=== PATIENT | female | born 1945 | race Caucasian/White ===

== ENCOUNTER 2021-01-20 22:22 | Emergency (ER) | payer MEDICARE, OTHER ==
[~2021-01-20] VITALS: Ht 144.8 cm; Wt 66.2 kg
[2021-01-20] MEDS ORDERED: LISINOPRIL10 MG PO (22:59)
[2021-01-20] MEDS ORDERED: CARBAMAZEPINE100 MG PO (22:59)
[2021-01-20] MEDS ORDERED: LEVOTHYROXINE100 MCG PO (23:02)
[2021-01-20] MEDS ORDERED: ATORVASTATIN CA20 MG PO (23:03)
[2021-01-20] MEDS ORDERED: DONEPEZIL HCL5 MG PO (23:03)
--- NOTE | 2021-01-22 12:46 | EKG ---
[facility] [address] [facility] [place], [place] [address] Signed Normal sinus rhythm Normal ECG No previous ECGs available Confirmed by RACHID WARREN DO ([id number]) on 01/22/2021 12:46:13 PM Electronically Signed By: RACHID WARREN DO 01/22/21 1246 PATIENT NAME: ANNE-MARIE SON CHANG Electrocardiogram DATE OF : 43 PHYSICIAN: RACHID WARREN DO REPORT #: [id number] REPORT IS CONFIDENTIAL AND NOT TO BE RELEASED WITHOUT AUTHORIZATION
== END 2021-01-21 03:07 | disposition home or self-care (01) ==
LOC: ED 22:22
PROC: 0T9B70Z Drainage of Bladder with Drainage Device, Via Natural or Artificial Opening (ICD-10-PCS; principal; 2021-01-20)
DX: R55 Syncope and collapse (principal); I10 Essential (primary) hypertension; E03.9 Hypothyroidism, unspecified; Z20.822 Contact with and (suspected) exposure to COVID-19; D72.829 Elevated white blood cell count, unspecified; Z79.899 Other long term (current) drug therapy
CPT/HCPCS: 51701; 70450; 71045; 74177; 80053; 81001; 84484; 85007; 85025; 93005; 93010; 99284-25; C9803; J7040; Q9967; U0003

== ENCOUNTER 2021-01-30 05:43 | Emergency (ER) | payer MEDICARE, OTHER ==
[~2021-01-30] VITALS: Ht 144.8 cm; Wt 66.2 kg
[~2021-01-30 05:43] MED LIST: ATORVASTATIN CA20 MG PO; CARBAMAZEPINE100 MG PO; DONEPEZIL HCL5 MG PO; LEVOTHYROXINE100 MCG PO; LISINOPRIL10 MG PO
--- OUTSIDE RECORDS SUMMARY | 2021-01-30 05:52 | XMS ---
PreManage Notification: ANNE-MARIE SON [employer] Events No recent Security Events currently on file CRITERIA MET - [facility] - 2 Visits in 30 Days CARE PROVIDERS There are no care providers on record at this time. Steve has no Care Guidelines for this patient. [facility] ([address] [facility]: Visits indicate total known visits. ED/C VISIT TRACKING (12 MO.) [facility] COMPLAINT: - VOMITING, URINE AND BOWEL PROBLEM 01/20/2021 22:[address] [facility] TYPE: Emergency COMPLAINT: - LOW BLOOD PRESSURE,DIZZINESS DIAGNOSES: - Hypothyroidism, unspecified - Other intermediate school teacher (current) drug therapy - Essential (primary) hypertension - Elevated white blood cell count, unspecified - Syncope and collapse INPATIENT VISIT TRACKING (12 MO.) No inpatient visits to display in this time frame [email or web address]
[2021-01-30] MEDS ORDERED: ONDANSETRON ODT4 MG PO (10:18)
--- NOTE | 2021-01-30 15:53 | EKG ---
[facility] [address] [facility] [place], [place] [address] Signed Normal sinus rhythm Normal ECG When compared with ECG of 20-JAN-2021 22:59, No significant change was found Confirmed by MAGALIS GOODRICH MD ([id number]) on 01/30/2021 3:53:44 PM Electronically Signed By: MAGALIS GOODRICH MD 01/30/21 1553 PATIENT NAME: ANNE-MARIE SON Electrocardiogram DATE OF : 43 PHYSICIAN: MAGALIS GOODRICH MD REPORT #: [id number] REPORT IS CONFIDENTIAL AND NOT TO BE RELEASED WITHOUT AUTHORIZATION
== END 2021-01-30 10:32 | disposition home or self-care (01) ==
LOC: ED 05:43
DX: K59.00 Constipation, unspecified (principal); R55 Syncope and collapse; I10 Essential (primary) hypertension; E03.9 Hypothyroidism, unspecified; F17.200 Nicotine dependence, unspecified, uncomplicated; Z79.899 Other long term (current) drug therapy; Z20.822 Contact with and (suspected) exposure to COVID-19
CPT/HCPCS: 74177; 80053; 81001; 83735; 84484; 85025; 93005; 93010; 96376; 99284-25; C9803; J2405; J7030; Q9967; U0003

== ENCOUNTER 2022-07-25 14:04 | Emergency (ER) | payer MEDICARE, OTHER ==
[~2022-07-25] VITALS: Ht 144.8 cm; Wt 66.2 kg
[~2022-07-25 14:04] MED LIST changes: +ONDANSETRON ODT4 MG PO
[2022-07-25] MEDS ORDERED: LISINOPRIL5 MG PO (14:20)
[2022-07-25] MEDS ORDERED: VITAMIN D31250 MC1 PO (14:20)
[2022-07-25] MEDS ORDERED: RISEDRONATE SOD35 M1 PO (14:20)
[2022-07-25] MEDS ORDERED: METHYLPREDNISOLO4 M1 PO (16:31)
== END 2022-07-25 16:42 | disposition home or self-care (01) ==
LOC: ED 14:04
DX: M54.42 Lumbago with sciatica, left side (principal); I10 Essential (primary) hypertension; E03.9 Hypothyroidism, unspecified; F17.200 Nicotine dependence, unspecified, uncomplicated; Z79.899 Other long term (current) drug therapy
CPT/HCPCS: 73502; 96372; 99283-25; J1100; J1885